=== PATIENT | female | born 1960 | race Caucasian/White ===

== ENCOUNTER 2017-05-28 05:45 | Emergency (ER) | payer MEDICAID ==
[~2017-05-28] VITALS: Ht 172.7 cm; Wt 65.0 kg
[2017-05-28 05:56] VITALS: BP 149/91
== END 2017-05-28 07:40 | disposition home or self-care (01) ==
LOC: ED 07:13
DX: J98.01 Acute bronchospasm (principal); F17.210 Nicotine dependence, cigarettes, uncomplicated
CPT/HCPCS: 71046; 99284